=== PATIENT | female | born 1950 | race Asian ===

== ENCOUNTER 2020-07-27 07:40 | Day surgery (SDC) | payer OTHER, SELFPAY ==
[~2020-07-27] VITALS: Ht 152.4 cm; Wt 45.8 kg
[2020-07-27] MEDS ORDERED: fentaNYL citrate 0.05 MG/ML VIAL ONE (09:21)
[2020-07-27] MEDS ORDERED: MIDAZOLAM 5 MG/5 ML VIAL ONE (09:22)
[2020-07-27] MEDS ORDERED: fentaNYL citrate 0.05 MG/ML VIAL IVP ONE (10:20)
[2020-07-27] MEDS ORDERED: MIDAZOLAM 2 MG/2 ML VIAL IVP ONE (10:20)
== END 2020-07-27 10:34 | disposition home or self-care (01) ==
LOC: MMU 07:40 → MOR 07:40
PROVIDERS: ATTEND Internal Medicine Gastroenterology
DX: K59.00 Constipation, unspecified (principal)
CPT/HCPCS: 45378; 87426; J2250; J3010